=== PATIENT | female | born 1990 | race Caucasian/White ===

== ENCOUNTER 2018-11-02 01:50 | Inpatient (IN) | payer BC ==
[2018-11-02] MEDS ORDERED: Ondansetron 4 MG/2 ML SDV IVPUSH PRN (16:38)
[2018-11-02] MEDS ORDERED: ceFAZolin 2 GM in Premix Bag 1 BAG IV ONE (16:38)
[2018-11-02] MEDS ORDERED: Nalbuphine 20 MG/ML 1 ML Syringe IVPUSH PRN (16:38)
[2018-11-02] MEDS ORDERED: Sodium Chloride 0.9% 10 ML Syringe FLUSH PRN (16:38)
[2018-11-02] MEDS ORDERED: Oxytocin/Lactated Ringers 10 UNIT/1,000 ML BAG IV SCH ×2 (16:45)
--- NOTE | 2018-11-02 16:50 | PCM.LDHP ---
L&D History of Present Illness - General Date of Service: 11/02/18 Admit Problem/Dx: Patient Status Order with Admit Dx/Problem 11/02/18 16:38 Patient Status [ADT] Routine Admission Diagnosis/Problem Admission Diagnosis/Problem Source of Information: Patient History Limitations: Reports: No Limitations - History of Present Illness Introduction:: Patient is a 28 y/o at 39 1/7 wks who presents for IOL after findings of elevated BP at time of clinic appointment. Doing well. No headaches, vision changes, or RUQ pain. 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 : 3 Para: 1 LMP (Approximate): - Past Surgical History HEENT Surgical History: Reports: Oral Surgery GI Surgical History: Reports: Colonoscopy, EGD Social & Family History - Tobacco Use Smoking Status *Q: Never Smoker - Alcohol Use Alcohol Use History: No - Recreational Drug Use Recreational Drug Use: No H&P Review of Systems - Review of Systems: Review Of Systems: See Below General: Reports: No Symptoms Pulmonary: Reports: No Symptoms Cardiovascular: Reports: No Symptoms Gastrointestinal: Reports: No Symptoms Genitourinary: Reports: No Symptoms Musculoskeletal: Reports: No Symptoms Psychiatric: Reports: No Symptoms Neurological: Reports: No Symptoms L&D Exam - Exam Exam: See Below - Vital Signs Weight: 112.491 kg - OB Specific Contraction Intensity: Irritability Movement: Active Heart Tones: Present Heart Tones per Min: 135 Heart Rate (FHR) Variability: Moderate (6-25 bmp) Presentation: Vertex - Fuentes Score Fuentes Score Cervix Position: Midposition Fuentes Score Consistency: Soft Fuentes Score Effacement: 31-50% Fuentes Score Dilation: 1-2 cm Fuentes Score Infant's Station: -2 Fuentes Score Total: 6 - Exam General: Alert, Oriented, Cooperative Lungs: Clear to Auscultation, Normal Respiratory Effort Cardiovascular: Regular Rate, Regular Rhythm GI/Abdominal Exam: Soft, Non-Tender Genitourinary: Normal external exam Extremities: Normal Inspection Skin: Warm, Dry, Intact - Patient Data Result Diagrams: 11/02/18 16:50 11/02/18 16:50 - Problem List (1) 39 weeks gestation of SNOMED Code(s): 39249053 ICD Code: Z3A.39 - 39 WEEKS GESTATION OF Status: Acute Current Visit: Yes (2) Gestational hypertension SNOMED Code(s): 626447830 ICD Code: O13.9 - GESTATIONAL HTN W/O SIGNIFICANT PROTEINURIA, UNSP TRIMESTER Status: Acute Current Visit: Yes Qualifiers: Trimester: third trimester Qualified Code(s): O13.3 - Gestational [ -induced] hypertension without significant proteinuria, third trimester (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 SNOMED Code(s): 0937980519627 ICD Code: Z22.330 - CARRIER OF GROUP B STREPTOCOCCUS Status: Acute Current Visit: Yes Problem List Initiated/Reviewed/Updated: Yes Orders Last 24hrs: Active Orders 24 hr Category Date Time Status Patient Status [ADT] Routine ADT 11/02/18 16:38 Active Activity as Tolerated [RC] PFP Care 11/02/18 16:38 Active Communication Order [RC] ASDIRECTED Care 11/02/18 16:38 Active Heart Tones [RC] ASDIRECTED Care 11/02/18 16:38 Active Non Stress Test [RC] PER UNIT ROUTINE Care 11/02/18 16:38 Active Notify Provider [RC] PFP Care 11/02/18 16:38 Active Notify Provider [RC] PRN Care 11/02/18 16:38 Active Peripheral IV Care [RC] . DIRECTED Care 11/02/18 16:38 Active Vital Signs [RC] PER UNIT ROUTINE Care 11/02/18 16:38 Active Regular Diet [DIET] Diet 11/02/18 Dinner Active CBC WITH AUTO DIFF [HEME] Stat Lab 11/02/18 16:38 Ordered RAPID PLASMA REAGIN,RPR [CHEM] Routine Lab 11/02/18 16:38 Ordered TYPE AND SCREEN [BBK] Stat Lab 11/02/18 16:38 Ordered Lactated Ringers [Ringers, Lactated] 1,000 ml Med 11/02/18 16:45 Active IV ASDIRECTED Nalbuphine [Nubain] Med 11/02/18 16:38 Active 10 mg IVPUSH Q2H PRN Ondansetron [Zofran] Med 11/02/18 16:38 Active 4 mg IVPUSH Q4H PRN Oxytocin/Lactated Ringers [Pitocin in LR 10 Units/1,000 Med 11/02/18 16:45 Active ML] 10 unit in 1,000 ml IV ASDIRECTED Oxytocin/Lactated Ringers [Pitocin in LR 10 Units/1,000 Med 11/02/18 16:45 Active ML] 10 unit in 1,000 ml IV TITRATE Sodium Chloride 0.9% [Saline Flush] Med 11/02/18 16:38 Active 10 ml FLUSH ASDIRECTED PRN ceFAZolin [Ancef] 1 gm Med 11/02/18 22:00 Pending Premix Bag 1 bag IV Q8HR ceFAZolin [Ancef] 2 gm Med 11/02/18 16:38 Active Premix Bag 1 bag IV ONETIME Electronic Heart Tones Ext w TOCO [WOMSER] Oth 11/02/18 16:38 Ordered Routine Electronic Heart Tones Internal [WOMSER] Per Unit Oth 11/02/18 16:38 Ordered Routine Peripheral IV Insertion Adult [OM.PC] Routine Oth 11/02/18 16:38 Ordered Resuscitation Status Routine Resus Stat 11/02/18 16:38 Ordered Medication Orders Cefazolin Sodium/Dextrose 2 gm (/ Premix) 50 mls @ 100 mls/hr IV ONETIME ONE Stop: 11/02/18 17:07 Cefazolin Sodium/Dextrose 1 gm (/ Premix) 50 mls @ 100 mls/hr IV Q8HR MICAELA Lactated Ringer's (Ringers, Lactated) 1,000 mls @ 100 mls/hr IV ASDIRECTED MICAELA Oxytocin/Lactated Ringer's (Pitocin In Lr 10 Units/1,000 Ml) 10 unit in 1,000 mls @ 12 mls/hr IV TITRATE MICAELA; Protocol Oxytocin/Lactated Ringer's (Pitocin In Lr 10 Units/1,000 Ml) 10 unit in 1,000 mls @ 500 mls/hr IV ASDIRECTED MICAELA Nalbuphine HCl (Nubain) 10 mg IVPUSH Q2H PRN PRN Reason: pain Ondansetron HCl (Zofran) 4 mg IVPUSH Q4H PRN PRN Reason: Nausea/Vomiting Sodium Chloride (Saline Flush) 10 ml FLUSH ASDIRECTED PRN PRN Reason: Keep Vein Open Assessment/Plan Comment:: 28 y/o at 39 1/7 wks who presents for IOL for gestational HTN * Labs on admission * GBS positive, will plan for Ancef (Amoxicillin allergy as a child) * Pitocin for IOL with AROM when able * Pain management per patient preference * Anticipate
[2018-11-02] MEDS: Lactated Ringers 1,000 ML IV SCH ×3 (17:07→22:46)
--- NOTE | 2018-11-02 20:46 | PCM.PNLD ---
Labor Progress Note - VS & Meds Vital Signs: Last Vital Signs Temp 37.1 C 11/02/18 16:38 Pulse 83 11/02/18 16:38 Resp 16 11/02/18 16:38 BP 139/91 H 11/02/18 16:38 Pulse Ox 98 11/02/18 16:38 Active Medications: Current Medications Cefazolin Sodium/Dextrose 1 gm (/ Premix) 50 mls @ 100 mls/hr IV Q8H MICAELA Lactated Ringer's (Ringers, Lactated) 1,000 mls @ 100 mls/hr IV ASDIRECTED MICAELA Last Admin: 11/02/18 17:07 Dose: 100 mls/hr Oxytocin/Lactated Ringer's (Pitocin In Lr 10 Units/1,000 Ml) 10 unit in 1,000 mls @ 12 mls/hr IV TITRATE MICAELA; Protocol Last Titration: 11/02/18 18:51 Dose: 6 munits/min, 36 mls/hr Oxytocin/Lactated Ringer's (Pitocin In Lr 10 Units/1,000 Ml) 10 unit in 1,000 mls @ 500 mls/hr IV ASDIRECTED MICAELA Nalbuphine HCl (Nubain) 10 mg IVPUSH Q2H PRN PRN Reason: pain Ondansetron HCl (Zofran) 4 mg IVPUSH Q4H PRN PRN Reason: Nausea/Vomiting Sodium Chloride (Saline Flush) 10 ml FLUSH ASDIRECTED PRN PRN Reason: Keep Vein Open Discontinued Medications Cefazolin Sodium/Dextrose 2 gm (/ Premix) 50 mls @ 100 mls/hr IV ONETIME ONE Stop: 11/02/18 17:07 Last Admin: 11/02/18 17:07 Dose: 100 mls/hr - Uterine Contractions Uterine Monitoring Mode: External [place] Contraction Intensity: Mild Uterine Resting Tone: Soft - Monitoring Monitor Mode: External Ultrasound Heart Rate (FHR) Baseline: 135 Heart Rate (FHR) Variability: Moderate (6-25 bmp) Accelerations: Present, 15x15 Decelerations: None Strip Review: Category I - Vaginal Exam Dilation (cm): 3 Effacement (Percent): 70 Station: -2 Cervical Position: Midposition - Labor Progress (Free Text) Labor Progress: Doing well on 12 of pitocin. AROM performed. Clear fluid released. Continue present management
[2018-11-02] MEDS ORDERED: ePHEDrine 50 MG/ML SDV IVPUSH PRN (21:08)
[2018-11-02] MEDS ORDERED: diphenhydrAMINE 50 MG/ML SDV IVPUSH PRN (21:08)
[2018-11-02] MEDS ORDERED: fentaNYL 100 MCG/2 ML SDV EPIDUR PRN (21:08)
--- NOTE | 2018-11-02 22:04 | PCM.PREANE ---
Preanesthetic Assessment - Anesthesia/Transfusion/Family Hx Anesthesia History: Prior Anesthesia Without Reaction Family History of Anesthesia Reaction: No Transfusion History: No Prior Transfusion(s) Intubation History: Unknown - Review of Systems General: No Symptoms Pulmonary: No Symptoms Cardiovascular: No Symptoms Gastrointestinal: No Symptoms Neurological: No Symptoms Other: Reports: None - Physical Assessment NPO Status Date: 11/02/18 NPO Status Time: 02:00 O2 Sat by Pulse Oximetry: 98 Respiratory Rate: 16 Vital Signs: Last Vital Signs Temp 37.1 C 11/02/18 16:38 Pulse 83 11/02/18 16:38 Resp 16 11/02/18 16:38 BP 139/91 H 11/02/18 16:38 Pulse Ox 98 11/02/18 16:38 Height: 1.75 m Weight: 112.491 kg ASA Class: 2 Mental Status: Alert & Oriented x3 Airway Class: Mallampati = 2 Dentition: Reports: Normal Dentition ROM/Head Extension: Full Lungs: Clear to Auscultation, Normal Respiratory Effort Cardiovascular: Regular Rate, Regular Rhythm, No Murmurs - Lab Values: Laboratory Last Values WBC 9.16 K/mm3 (3.98-10.04) 11/02/18 16:50 RBC 4.19 M/mm3 (3.98-5.22) 11/02/18 16:50 Hgb 11.0 gm/L (11.2-15.7) L 11/02/18 16:50 Hct 34.4 % (34.1-44.9) 11/02/18 16:50 MCV 82.1 fl (79.4-94.8) 11/02/18 16:50 MCH 26.3 pg (25.6-32.2) 11/02/18 16:50 MCHC 32.0 g/dl (32.2-35.5) L 11/02/18 16:50 RDW Std Deviation 42.2 fL (36.4-46.3) 11/02/18 16:50 Plt Count 268 K/mm3 (182-369) 11/02/18 16:50 MPV 11.0 fl (9.4-12.3) 11/02/18 16:50 Neut % (Auto) 65.5 % (34.0-71.1) 11/02/18 16:50 Lymph % (Auto) 25.9 % (19.3-51.7) 11/02/18 16:50 [place] % (Auto) 7.4 % (4.7-12.5) 11/02/18 16:50 Eos % (Auto) 0.7 (0.7-5.8) 11/02/18 16:50 Baso % (Auto) 0.2 % (0.1-1.2) 11/02/18 16:50 Neut # (Auto) 6.00 K/mm3 (1.56-6.13) 11/02/18 16:50 Lymph # (Auto) 2.37 K/mm3 (1.18-3.74) 11/02/18 16:50 [place] # (Auto) 0.68 K/mm3 (0.24-0.36) H 11/02/18 16:50 Eos # (Auto) 0.06 K/mm3 (0.04-0.36) 11/02/18 16:50 Baso # (Auto) 0.02 K/mm3 (0.01-0.08) 11/02/18 16:50 Creatinine 0.7 mg/dL (0.55-1.02) 11/02/18 16:50 Est Cr Clr Drug Dosing 122.81 mL/min 11/02/18 16:50 Estimated GFR (MDRD) > 60 mL/min (>60) 11/02/18 16:50 AST 24 U/L (15-37) 11/02/18 16:50 ALT 27 U/L (14-59) 11/02/18 16:50 Ur Random Creatinine 120.0 mg/dL (30.0-125.0) 11/02/18 18:40 U Random Total Protein 23.0 mg/dL (0.0-11.8) H 11/02/18 18:40 Protein/Creatinin Ratio 191.7 mg/g (0-149) H 11/02/18 18:40 Blood Type AB POSITIVE 11/02/18 16:50 Gel Antibody Screen Negative 11/02/18 16:50 - Allergies Allergies/Adverse Reactions: Allergies Allergy/AdvReac Type Severity Reaction Status Date / Time gluten Allergy Mild Other Verified 11/02/18 16:15 amoxicillin Allergy Other Verified 11/02/18 16:15 - Blood Blood Available: Yes - Anesthesia Plan Pre-Op Medication Ordered: None - Acknowledgements Anesthesia Type Planned: Epidural Pt an Appropriate Candidate for the Planned Anesthesia: Yes Alternatives and Risks of Anesthesia Discussed w Pt/Guardian: Yes Pt/Guardian Understands and Agrees with Anesthesia Plan: Yes PreAnesthesia Questionnaire Gastrointestinal History: Reports: 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: , 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 Endocrine/Metabolic History: Reports: Obesity/BMI 30+ - Past Surgical History HEENT Surgical History: Reports: Oral Surgery GI Surgical History: Reports: Colonoscopy, EGD - SUBSTANCE USE Smoking Status *Q: Never Smoker Second Hand Smoke Exposure: No Recreational Drug Use History: No - HOME MEDS Home Medications: Home Meds Ferrous Sulfate [Iron] 325 mg PO DAILY 11/02/18 [History] PNV95/Ferrous Fumarate/FA [ Tablet] 1 tab PO DAILY 11/02/18 [History] - CURRENT (IN HOUSE) MEDS Current Meds: Current Medications Diphenhydramine HCl (Benadryl) 25 mg IVPUSH Q6H PRN PRN Reason: Pruritis Ephedrine Sulfate (Ephedrine Sulfate) 5 mg IVPUSH ONETIME PRN PRN Reason: Hypotension Fentanyl (Sublimaze) 100 mcg EPIDUR Q3H PRN PRN Reason: Pain Cefazolin Sodium/Dextrose 1 gm (/ Premix) 50 mls @ 100 mls/hr IV Q8H MICAELA Lactated Ringer's (Ringers, Lactated) 1,000 mls @ 100 mls/hr IV ASDIRECTED [facility] Last Admin: 11/02/18 21:02 Dose: 100 mls/hr Oxytocin/Lactated Ringer's (Pitocin In Lr 10 Units/1,000 Ml) 10 unit in 1,000 mls @ 12 mls/hr IV TITRATE MICAELA; Protocol Last Titration: 11/02/18 19:45 Dose: 10 munits/min, 60 mls/hr Oxytocin/Lactated Ringer's (Pitocin In Lr 10 Units/1,000 Ml) 10 unit in 1,000 mls @ 500 mls/hr IV ASDIRECTED [facility] Nalbuphine HCl (Nubain) 10 mg IVPUSH Q2H PRN PRN Reason: pain Ondansetron HCl (Zofran) 4 mg IVPUSH Q4H PRN PRN Reason: Nausea/Vomiting Sodium Chloride (Saline Flush) 10 ml FLUSH ASDIRECTED PRN PRN Reason: Keep Vein Open Discontinued Medications Cefazolin Sodium/Dextrose 2 gm (/ Premix) 50 mls @ 100 mls/hr IV ONETIME ONE Stop: 11/02/18 17:07 Last Admin: 11/02/18 17:07 Dose: 100 mls/hr
--- NOTE | 2018-11-02 22:05 | PCM.POSTAN ---
POST ANESTHESIA ASSESSMENT - MENTAL STATUS Mental Status: Alert - RESPIRATORY Respiratory Status: Respiratory Rate WNL, Airway Patent - CARDIOVASCULAR CV Status: Pulse Rate WNL, Blood Pressure Stable - GASTROINTESTINAL GI Status: No Symptoms - POST OP HYDRATION Hydration Status: Adequate & Stable
[2018-11-03] MEDS ORDERED: ceFAZolin 1 GM in Premix Bag 1 BAG IV SCH ×2
--- NOTE | 2018-11-03 02:22 | PCM.DEL ---
L & D Note - Delivery Note Labor: Induced by ARM, Induced by Oxytocin Delivery Outcome: Livebirth Delivery Method: Spontaneous Vaginal Delivery-Single Delivery Mode: Spontaneous Presentation: Right Occiput Anterior (PRITI) Nuchal Cord: Present (Not reduced as tight, delivered through) Anesthesia Type: Epidural Amniotic Fluid Description: Clear Episiotomy Type: None Laceration: 2nd Degree, Perineal Suture type: Vicryl Suture size: 2-0 Placenta: Intact, Spontaneous Cord: 3 Vessels Estimated Blood Loss: 200 : Bulb Syringe, Stimulated, Warmed, [place] Used, Warmer Used Delivery Comments (Free Text/Narrative):: Patient found to be complete and began pushing. With maternal pushing effort head delivered from an PRITI presentation. Nuchal cord present, but tight and not able to be reduced. With gentle downward tractions the shoulders and body delivered. Infant placed on maternal abdomen. Cord clamped and cut. Cord blood obtained. Placenta allowed time to separate and expelled intact. Inspection of the perineum showed a 2nd degree laceration. On perineal body was also a vigorous bleeding vessel. This was controlled with an interrupted suture of 2-0 vicryl placed in figure of eight fashion. Remainder of laceration closed with a 2-0 in a typical fashion. - General Info Date of Service: 11/03/18 - Patient Data Vitals - Most Recent: Last Vital Signs Temp 37.1 C 11/02/18 16:38 Pulse 83 11/02/18 16:38 Resp 16 11/02/18 22:04 BP 139/91 H 11/02/18 16:38 Pulse Ox 98 11/02/18 22:04 Weight - Most Recent: 112.491 kg I&O - Last 24 Hours: Intake & Output 11/02/18 11/02/18 11/03/18 14:59 22:59 06:59 Intake Total 1999 Balance 1999 Lab Results Last 24 Hours: Laboratory Results - last 24 hr 11/02/18 11/02/18 11/02/18 Range/Units 16:50 16:50 16:50 WBC 9.16 (3.98-10.04) K/mm3 RBC 4.19 (3.98-5.22) M/mm3 Hgb 11.0 L (11.2-15.7) gm/L Hct 34.4 (34.1-44.9) % MCV 82.1 (79.4-94.8) fl MCH 26.3 (25.6-32.2) pg MCHC 32.0 L (32.2-35.5) g/dl RDW Std Deviation 42.2 (36.4-46.3) fL Plt Count 268 (182-369) K/mm3 MPV 11.0 (9.4-12.3) fl Neut % (Auto) 65.5 (34.0-71.1) % Lymph % (Auto) 25.9 (19.3-51.7) % [place] % (Auto) 7.4 (4.7-12.5) % Eos % (Auto) 0.7 (0.7-5.8) Baso % (Auto) 0.2 (0.1-1.2) % Neut # (Auto) 6.00 (1.56-6.13) K/mm3 Lymph # (Auto) 2.37 (1.18-3.74) K/mm3 [place] # (Auto) 0.68 H (0.24-0.36) K/mm3 Eos # (Auto) 0.06 (0.04-0.36) K/mm3 Baso # (Auto) 0.02 (0.01-0.08) K/mm3 Creatinine 0.7 (0.55-1.02) mg/dL Est Cr Clr Drug Dosing 122.81 mL/min Estimated GFR (MDRD) > 60 (>60) mL/min AST 24 (15-37) U/L ALT 27 (14-59) U/L Ur Random Creatinine (30.0-125.0) mg/dL U Random Total Protein (0.0-11.8) mg/dL Protein/Creatinin Ratio (0-149) mg/g Blood Type AB POSITIVE Gel Antibody Screen Negative 11/02/18 Range/Units 18:40 WBC (3.98-10.04) K/mm3 RBC (3.98-5.22) M/mm3 Hgb (11.2-15.7) gm/L Hct (34.1-44.9) % MCV (79.4-94.8) fl MCH (25.6-32.2) pg MCHC (32.2-35.5) g/dl RDW Std Deviation (36.4-46.3) fL Plt Count (182-369) K/mm3 MPV (9.4-12.3) fl Neut % (Auto) (34.0-71.1) % Lymph % (Auto) (19.3-51.7) % [place] % (Auto) (4.7-12.5) % Eos % (Auto) (0.7-5.8) Baso % (Auto) (0.1-1.2) % Neut # (Auto) (1.56-6.13) K/mm3 Lymph # (Auto) (1.18-3.74) K/mm3 [place] # (Auto) (0.24-0.36) K/mm3 Eos # (Auto) (0.04-0.36) K/mm3 Baso # (Auto) (0.01-0.08) K/mm3 Creatinine (0.55-1.02) mg/dL Est Cr Clr Drug Dosing mL/min Estimated GFR (MDRD) (>60) mL/min AST (15-37) U/L ALT (14-59) U/L Ur Random Creatinine 120.0 (30.0-125.0) mg/dL U Random Total Protein 23.0 H (0.0-11.8) mg/dL Protein/Creatinin Ratio 191.7 H (0-149) mg/g Blood Type Gel Antibody Screen Med Orders - Current: Current Medications Diphenhydramine HCl (Benadryl) 25 mg IVPUSH Q6H PRN PRN Reason: Pruritis Ephedrine Sulfate (Ephedrine Sulfate) 5 mg IVPUSH ONETIME PRN PRN Reason: Hypotension Fentanyl (Sublimaze) 100 mcg EPIDUR Q3H PRN PRN Reason: Pain Cefazolin Sodium/Dextrose 1 gm (/ Premix) 50 mls @ 100 mls/hr IV Q8H [facility] Last Admin: 11/03/18 01:06 Dose: 100 mls/hr Lactated Ringer's (Ringers, Lactated) 1,000 mls @ 100 mls/hr IV ASDIRECTED [facility] Last Admin: 11/02/18 22:46 Dose: 100 mls/hr Oxytocin/Lactated Ringer's (Pitocin In Lr 10 Units/1,000 Ml) 10 unit in 1,000 mls @ 12 mls/hr IV TITRATE MICAELA; Protocol Last Titration: 11/02/18 23:20 Dose: 16 munits/min, 96 mls/hr Oxytocin/Lactated Ringer's (Pitocin In Lr 10 Units/1,000 Ml) 10 unit in 1,000 mls @ 500 mls/hr IV ASDIRECTED MICAELA Nalbuphine HCl (Nubain) 10 mg IVPUSH Q2H PRN PRN Reason: pain Ondansetron HCl (Zofran) 4 mg IVPUSH Q4H PRN PRN Reason: Nausea/Vomiting Sodium Chloride (Saline Flush) 10 ml FLUSH ASDIRECTED PRN PRN Reason: Keep Vein Open Discontinued Medications Cefazolin Sodium/Dextrose 2 gm (/ Premix) 50 mls @ 100 mls/hr IV ONETIME ONE Stop: 11/02/18 17:07 Last Admin: 11/02/18 17:07 Dose: 100 mls/hr - Problem List & Annotations (1) 39 weeks gestation of SNOMED Code(s): 18166155 Code(s): Z3A.39 - 39 WEEKS GESTATION OF Status: Acute Current Visit: Yes (2) Gestational hypertension SNOMED Code(s): 131220504 Code(s): O13.9 - GESTATIONAL HTN W/O SIGNIFICANT PROTEINURIA, UNSP TRIMESTER Status: Acute Current Visit: Yes Qualifiers: Trimester: third trimester Qualified Code(s): O13.3 - Gestational [ -induced] hypertension without significant proteinuria, third trimester (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 DIRECTED Vital Signs [RC] PER UNIT ROUTINE Nalbuphine [Nubain] 10 mg IVPUSH Q2H PRN Ondansetron [Zofran] 4 mg IVPUSH Q4H PRN Sodium Chloride 0.9% [Saline Flush] 10 ml FLUSH ASDIRECTED PRN Electronic Heart Tones Ext w TOCO [WOMSER] Routine Electronic Heart Tones Internal [WOMSER] Per Unit Routine Peripheral IV Insertion Adult [OM.PC] Routine Resuscitation Status Routine 11/02/18 16:45 Lactated Ringers [Ringers, Lactated] 1,000 ml IV ASDIRECTED Oxytocin/Lactated Ringers [Pitocin in LR 10 Units/1,000 ML] 10 unit in 1,000 ml IV ASDIRECTED Oxytocin/Lactated Ringers [Pitocin in LR 10 Units/1,000 ML] 10 unit in 1,000 ml IV TITRATE 11/02/18 16:50 RAPID PLASMA REAGIN,RPR [CHEM] Routine 11/02/18 Dinner Regular Diet [DIET] 11/03/18 00:00 ceFAZolin [Ancef] 1 gm Premix Bag 1 bag IV Q8H 11/03/18 02:18 Patient Status Manage Transfer [TRANSFER] Routine - Assessment Assessment:: 28 y/o G3 now P2012 PPD#0 form at 39 2/7 wks - Plan Plan:: * Routine cares * Encourage breast feeding * Monitor BP's closely * Discharge home in 1-2 days
[2018-11-03] MEDS ORDERED: Witch Hazel Medicated Pads 40/Jar TOP PRN (03:00)
[2018-11-03] MEDS ORDERED: Bupivacaine 0.25% 10 ML SDV ONE (03:00)
[2018-11-03] MEDS ORDERED: Benzocaine/Menthol 20%-0.5% Spray 56 GM Canister TOP PRN (03:00)
[2018-11-03] MEDS ORDERED: Acetaminophen 325 MG Tab PO PRN (03:00)
[2018-11-03] MEDS ORDERED: Lanolin 100% Cream 7 GM Tube TOP PRN (03:00)
[2018-11-03] MEDS: Docusate Sodium 100 MG Cap PO PRN ×2 (03:56→20:15)
[2018-11-03] MEDS: Ibuprofen 600 MG Tab PO PRN ×2 (03:56→20:16)
--- NOTE | 2018-11-03 07:14 | PCM48HPAN ---
Post Anesthesia Note - EVALUATION WITHIN 48HRS OF ANESTHETIC Vital Signs in Normal Range: Yes Patient Participated in Evaluation: Yes Respiratory Function Stable: Yes Airway Patent: Yes Cardiovascular Function Stable: Yes Hydration Status Stable: Yes Pain Control Satisfactory: Yes Nausea and Vomiting Control Satisfactory: Yes Mental Status Recovered: Yes Resp Rate: 16
[2018-11-03] MEDS ORDERED: Bupivacaine/fentaNYL/NS 100 ML Bag EPIDUR SCH (07:30)
[2018-11-04] MEDS: Ibuprofen 600 MG Tab PO PRN (03:31)
--- NOTE | 2018-11-04 07:04 | PCM.PNPP ---
- General Info Date of Service: 11/04/18 Functional Status: Reports: Pain Controlled, Tolerating Diet, Ambulating, Urinating - Review of Systems General: Reports: No Symptoms Pulmonary: Reports: No Symptoms Cardiovascular: Reports: No Symptoms Gastrointestinal: Reports: No Symptoms Genitourinary: Reports: No Symptoms Musculoskeletal: Reports: No Symptoms Neurological: Reports: No Symptoms - Patient Data Vital Signs - Most Recent: Last Vital Signs Temp 36.6 C 11/04/18 03:47 Pulse 69 11/04/18 03:47 Resp 16 11/04/18 03:47 BP 123/78 11/04/18 03:47 Pulse Ox 99 11/04/18 03:47 Weight - Most Recent: 112.491 kg Lab Results - Last 24 Hours: Laboratory Results - last 24 hr 11/02/18 Range/Units 16:50 RPR Non-reactive (NONREACTIVE) Med Orders - Current: Current Medications Acetaminophen (Tylenol) 650 mg PO Q4H PRN PRN Reason: mild pain or fever Benzocaine/Menthol (Dermoplast Pain Relief [place]) 0 gm TOP ASDIRECTED PRN PRN Reason: Perineal Comfort Measure Last Admin: 11/03/18 03:53 Dose: 1 canister Docusate Sodium (Colace) 100 mg PO BID PRN PRN Reason: Constipation Last Admin: 11/03/18 20:15 Dose: 100 mg Emollient Ointment (Lansinoh Hpa) 0 gm TOP ASDIRECTED PRN PRN Reason: Sore Nipples Last Admin: 11/03/18 04:00 Dose: 1 tub Ibuprofen (Motrin) 600 mg PO Q6H PRN PRN Reason: Mild pain or fever Last Admin: 11/04/18 03:31 Dose: 600 mg Witch Karli (Tucks) 1 pad TOP ASDIRECTED PRN PRN Reason: Perineal Comfort Measure Last Admin: 11/03/18 03:53 Dose: 1 tub Discontinued Medications Bupivacaine HCl (Sensorcaine-Mpf 0.25%) 10 ml .ROUTE .STK-MED ONE Stop: 11/03/18 03:01 Diphenhydramine HCl (Benadryl) 25 mg IVPUSH Q6H PRN PRN Reason: Pruritis Ephedrine Sulfate (Ephedrine Sulfate) 5 mg IVPUSH ONETIME PRN PRN Reason: Hypotension Fentanyl (Sublimaze) 100 mcg EPIDUR Q3H PRN PRN Reason: Pain Fentanyl/Bupivacaine HCl (Fentanyl/Bupivacaine/Ns 2 Mcg-0.125% 100 Ml) 100 ml EPIDUR ASDIRECTED [facility] Last Admin: 11/02/18 21:30 Dose: 100 ml Cefazolin Sodium/Dextrose 2 gm (/ Premix) 50 mls @ 100 mls/hr IV ONETIME ONE Stop: 11/02/18 17:07 Last Admin: 11/02/18 17:07 Dose: 100 mls/hr Cefazolin Sodium/Dextrose 1 gm (/ Premix) 50 mls @ 100 mls/hr IV Q8H [facility] Last Admin: 11/03/18 01:06 Dose: 100 mls/hr Lactated Ringer's (Ringers, Lactated) 1,000 mls @ 100 mls/hr IV ASDIRECTED [facility] Last Admin: 11/02/18 22:46 Dose: 100 mls/hr Oxytocin/Lactated Ringer's (Pitocin In Lr 10 Units/1,000 Ml) 10 unit in 1,000 mls @ 12 mls/hr IV TITRATE [facility]; Protocol Last Titration: 11/02/18 23:20 Dose: 16 munits/min, 96 mls/hr Oxytocin/Lactated Ringer's (Pitocin In Lr 10 Units/1,000 Ml) 10 unit in 1,000 mls @ 500 mls/hr IV ASDIRECTED [facility] Nalbuphine HCl (Nubain) 10 mg IVPUSH Q2H PRN PRN Reason: pain Ondansetron HCl (Zofran) 4 mg IVPUSH Q4H PRN PRN Reason: Nausea/Vomiting Sodium Chloride (Saline Flush) 10 ml FLUSH ASDIRECTED PRN PRN Reason: Keep Vein Open - Infant Interaction Disposition, : in Room with Family Interaction: Holding Infant Infant Feeding: Attempted ; Nursed Fair/Poor Support Person: - Recovery Exam Fundal Tone: Firm Fundal Level: 1 Fingerbreadths Below Umbilicus Fundal Placement: Midline Lochia Amount: Small Lochia Color: Rubra/Red Perineum Description: Other (see below) Other Perinuem Description: 2 nd degree with repair Episiotomy/Laceration: Approximated Bladder Status: Voiding Urinary Elimination: Voided - Exam General: Alert, Oriented, Cooperative GI/Abdominal Exam: Soft, Non-Tender Extremities: Normal Inspection Skin: Warm, Dry, Intact - Problem List & Annotations (1) 39 weeks gestation of SNOMED Code(s): 19713748 Code(s): Z3A.39 - 39 WEEKS GESTATION OF Status: Acute Current Visit: Yes (2) Gestational hypertension SNOMED Code(s): 891672609 Code(s): O13.9 - GESTATIONAL HTN W/O SIGNIFICANT PROTEINURIA, UNSP TRIMESTER Status: Acute Current Visit: Yes Qualifiers: Trimester: third trimester Qualified Code(s): O13.3 - Gestational [ -induced] hypertension without significant proteinuria, third trimester (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 SNOMED Code(s): 1783464959951 Code(s): Z22.330 - CARRIER OF GROUP B STREPTOCOCCUS Status: Acute Current Visit: Yes (4) Vaginal delivery SNOMED Code(s): 992969724 Code(s): O80 - ENCOUNTER FOR FULL-TERM UNCOMPLICATED DELIVERY Status: Acute Current Visit: Yes - Problem List Review Problem List Initiated/Reviewed/Updated: Yes - My Orders Last 24 Hours: My Active Orders 11/03/18 Breakfast Regular Diet [DIET] 11/04/18 03:00 Heat Therapy [OM.PC] PRN - Assessment Assessment:: 28 y/o G3 now P2012 PPD#1 form at 39 2/7 wks - Plan Plan:: * Routine cares * Encourage breast feeding * BP's normal to mild range. BP check in 1-2 weeks * Discharge home today
--- NOTE | 2018-11-04 07:06 | PCM.DCSUM1 ---
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 IOL done with pitocin and AROM. She progressed well to complete dilation and underwent an uncomplicated . See delivery note. she did well and was discharged home on PPD#1 - Patient Instructions Diet: Regular Diet as Tolerated Activity: As Tolerated Activity, Other: Pelvic rest for 6 weeks Driving: May Drive Today Showering/Bathing: May Shower Showering/Bathing, Other: May Bathe Notify Provider of: Fever, Increased Pain, Swelling and Redness, Drainage, Nausea and/or Vomiting - Discharge Plan *PRESCRIPTION DRUG MONITORING PROGRAM REVIEWED*: Not Applicable *COPY OF PRESCRIPTION DRUG MONITORING REPORT IN PATIENT OLAYINKA: Not Applicable Home Medications: Home Meds PNV95/Ferrous Fumarate/FA [ Tablet] 1 tab PO DAILY 11/02/18 [History] Docusate Sodium [Colace] 100 mg PO BID PRN cap 11/03/18 [Rx] Ibuprofen [Motrin] 600 mg PO Q6H PRN tablet 11/03/18 [Rx] Referrals: Alina Wesley MD [Primary Care Provider] - (2 weeks for BP check ) - Discharge Summary/Plan Comment DC Time >30 min.: No - Patient Data Vitals - Most Recent: Last Vital Signs Temp 36.6 C 11/04/18 03:47 Pulse 69 11/04/18 03:47 Resp 16 11/04/18 03:47 BP 123/78 11/04/18 03:47 Pulse Ox 99 11/04/18 03:47 Weight - Most Recent: 112.491 kg Lab Results - Last 24 hrs: Laboratory Results - last 24 hr 11/02/18 Range/Units 16:50 RPR Non-reactive (NONREACTIVE) Med Orders - Current: Current Medications Acetaminophen (Tylenol) 650 mg PO Q4H PRN PRN Reason: mild pain or fever Benzocaine/Menthol (Dermoplast Pain Relief [place]) 0 gm TOP ASDIRECTED PRN PRN Reason: Perineal Comfort Measure Last Admin: 11/03/18 03:53 Dose: 1 canister Docusate Sodium (Colace) 100 mg PO BID PRN PRN Reason: Constipation Last Admin: 11/03/18 20:15 Dose: 100 mg Emollient Ointment (Lansinoh Hpa) 0 gm TOP ASDIRECTED PRN PRN Reason: Sore Nipples Last Admin: 11/03/18 04:00 Dose: 1 tub Ibuprofen (Motrin) 600 mg PO Q6H PRN PRN Reason: Mild pain or fever Last Admin: 11/04/18 03:31 Dose: 600 mg Witch Karli (Tucks) 1 pad TOP ASDIRECTED PRN PRN Reason: Perineal Comfort Measure Last Admin: 11/03/18 03:53 Dose: 1 tub Discontinued Medications Bupivacaine HCl (Sensorcaine-Mpf 0.25%) 10 ml .ROUTE .STK-MED ONE Stop: 11/03/18 03:01 Diphenhydramine HCl (Benadryl) 25 mg IVPUSH Q6H PRN PRN Reason: Pruritis Ephedrine Sulfate (Ephedrine Sulfate) 5 mg IVPUSH ONETIME PRN PRN Reason: Hypotension Fentanyl (Sublimaze) 100 mcg EPIDUR Q3H PRN PRN Reason: Pain Fentanyl/Bupivacaine HCl (Fentanyl/Bupivacaine/Ns 2 Mcg-0.125% 100 Ml) 100 ml EPIDUR ASDIRECTED [facility] Last Admin: 11/02/18 21:30 Dose: 100 ml Cefazolin Sodium/Dextrose 2 gm (/ Premix) 50 mls @ 100 mls/hr IV ONETIME ONE Stop: 11/02/18 17:07 Last Admin: 11/02/18 17:07 Dose: 100 mls/hr Cefazolin Sodium/Dextrose 1 gm (/ Premix) 50 mls @ 100 mls/hr IV Q8H [facility] Last Admin: 11/03/18 01:06 Dose: 100 mls/hr Lactated Ringer's (Ringers, Lactated) 1,000 mls @ 100 mls/hr IV ASDIRECTED [facility] Last Admin: 11/02/18 22:46 Dose: 100 mls/hr Oxytocin/Lactated Ringer's (Pitocin In Lr 10 Units/1,000 Ml) 10 unit in 1,000 mls @ 12 mls/hr IV TITRATE [facility]; Protocol Last Titration: 11/02/18 23:20 Dose: 16 munits/min, 96 mls/hr Oxytocin/Lactated Ringer's (Pitocin In Lr 10 Units/1,000 Ml) 10 unit in 1,000 mls @ 500 mls/hr IV ASDIRECTED [facility] Nalbuphine HCl (Nubain) 10 mg IVPUSH Q2H PRN PRN Reason: pain Ondansetron HCl (Zofran) 4 mg IVPUSH Q4H PRN PRN Reason: Nausea/Vomiting Sodium Chloride (Saline Flush) 10 ml FLUSH ASDIRECTED PRN PRN Reason: Keep Vein Open
[2018-11-04 09:28] VITALS: BP 131/81
== END 2018-11-04 12:50 | disposition home or self-care (01) | DRG 560 ==
LOC: JD.OB 01:50 → OBSVTOIN 11-03 01:50 → JD.OB 11-03 01:51
PROVIDERS: ADMIT Obstetrics & Gynecology; ATTEND Obstetrics & Gynecology
PROC: 10E0XZZ Delivery of Products of Conception, External Approach (ICD-10-PCS; principal; 2018-11-03)
PROC: 10907ZC Drainage of Amniotic Fluid, Therapeutic from Products of Conception, Via Natural or Artificial Opening (ICD-10-PCS; 2018-11-03)
PROC: 3E033VJ Introduction of Other Hormone into Peripheral Vein, Percutaneous Approach (ICD-10-PCS; 2018-11-03)
PROC: 0KQM0ZZ Repair Perineum Muscle, Open Approach (ICD-10-PCS; 2018-11-03)
PROC: 4A1HXCZ Monitoring of Products of Conception, Cardiac Rate, External Approach (ICD-10-PCS; 2018-11-03)
DX: O13.3 Gestational [pregnancy-induced] hypertension without significant proteinuria, third trimester (principal); O69.81X0 Labor and delivery complicated by cord around neck, without compression, not applicable or unspecified; O99.824 Streptococcus B carrier state complicating childbirth; O70.1 Second degree perineal laceration during delivery; O99.214 Obesity complicating childbirth; E66.9 Obesity, unspecified; Z3A.39 39 weeks gestation of pregnancy; Z37.0 Single live birth
CPT/HCPCS: 36415; 51702; 59025; 59409; 82565; 82570; 84156; 84450; 84460; 85025; 86592; 86850; 86900; 86901; A9270-GY; J0690; J2590; J3490; J7120

== ENCOUNTER 2020-01-02 11:25 | Inpatient (IN) | payer OTHER ==
[2020-01-02] MEDS ORDERED: Sodium Chloride 0.9% 10 ML Syringe FLUSH PRN (11:43)
[2020-01-02] MEDS ORDERED: Nalbuphine 10 MG/ML Syringe IVPUSH PRN (11:43)
[2020-01-02] MEDS ORDERED: Oxytocin/Lactated Ringers 10 UNIT/1,000 ML BAG IV SCH ×2 (11:45)
--- NOTE | 2020-01-02 11:46 | PCM.LDHP ---
L&D History of Present Illness - General Date of Service: 01/02/20 Admit Problem/Dx: Patient Status Order with Admit Dx/Problem 01/02/20 11:43 Patient Status [ADT] Routine Admission Diagnosis/Problem Admission Diagnosis/Problem Gestational hypertension Source of Information: Patient History Limitations: Reports: No Limitations - History of Present Illness Introduction:: Patient is a 29 y/o at 38 0/7 wks who presents for IOL for findings of mild range BP's in clinic. Doing well otherwise. Notes good FM. Asymptomatic. - Related Data Allergies/Adverse Reactions: Allergies Allergy/AdvReac Type Severity Reaction Status Date / Time gluten Allergy Mild Other Verified 11/02/18 16:15 amoxicillin Allergy Other Verified 11/02/18 16:15 Home Medications: Home Meds Pnv No.95/Ferrous Fum/Folic AC [ Tablet] 1 tab PO DAILY 11/02/18 [H istory] Past Medical History Gastrointestinal History: Reports: Celiac Disease PR INTERN History: Reports: , Spontaneous : 4 Para: 2 LMP (Approximate): - Past Surgical History HEENT Surgical History: Reports: Oral Surgery GI Surgical History: Reports: Colonoscopy, EGD Social & Family History - Family History Family Medical History: Noncontributory - Tobacco Use Smoking Status *Q: Never Smoker - Caffeine Use Caffeine Use: Reports: None - Alcohol Use Alcohol Use History: No - Recreational Drug Use Recreational Drug Use: No H&P Review of Systems - Review of Systems: Review Of Systems: See Below General: Reports: No Symptoms Pulmonary: Reports: No Symptoms Cardiovascular: Reports: No Symptoms Gastrointestinal: Reports: No Symptoms Genitourinary: Reports: No Symptoms Musculoskeletal: Reports: No Symptoms Psychiatric: Reports: No Symptoms Neurological: Reports: No Symptoms L&D Exam - Exam Exam: See Below - OB Specific Contraction Intensity: Irritability Movement: Active Heart Tones: Present Heart Tones per Min: 140 Heart Rate (FHR) Variability: Moderate (6-25 bmp) Presentation: Vertex - Fuentes Score Fuentes Score Cervix Position: Posterior Fuentes Score Consistency: Soft Fuentes Score Effacement: 51-70% Fuentes Score Dilation: 1-2 cm Fuentes Score 's Station: -2 Fuentes Score Total: 6 - Exam General: Alert, Oriented, Cooperative Lungs: Clear to Auscultation, Normal Respiratory Effort Cardiovascular: Regular Rate, Regular Rhythm GI/Abdominal Exam: Soft, Non-Tender Genitourinary: Normal external exam Extremities: Normal Inspection Skin: Warm, Dry, Intact - Patient Data Result Diagrams: 01/02/20 12:25 01/02/20 12:25 - Problem List (1) 38 weeks gestation of SNOMED Code(s): 71832796 ICD Code: Z3A.38 - 38 WEEKS GESTATION OF Status: Acute Current Visit: Yes (2) GBS carrier SNOMED Code(s): 9325237980465 ICD Code: Z22.330 - CARRIER OF GROUP B STREPTOCOCCUS Status: Acute Current Visit: No (3) Gestational hypertension SNOMED Code(s): 498042960 ICD Code: O13.9 - GESTATIONAL HTN W/O SIGNIFICANT PROTEINURIA, UNSP TRIMESTER Status: Acute Current Visit: No Qualifiers: Trimester: third trimester Qualified Code(s): O13.3 - Gestational [pregnanc y-induced] hypertension without significant proteinuria, third trimester Problem List Initiated/Reviewed/Updated: Yes Orders Last 24hrs: Active Orders 24 hr Category Date Time Status Patient Status [ADT] Routine ADT 01/02/20 11:43 Ordered Activity as Tolerated [RC] PFP Care 01/02/20 11:43 Ordered Communication Order [RC] ASDIRECTED Care 01/02/20 11:43 Ordered Communication Order [RC] ASDIRECTED Care 01/02/20 11:43 Ordered Communication Order [RC] ASDIRECTED Care 01/02/20 11:43 Ordered Non Stress Test [RC] PER UNIT ROUTINE Care 01/02/20 11:43 Ordered Notify Provider [RC] ASDIRECTED Care 01/02/20 11:43 Ordered Notify Provider [RC] PRN Care 01/02/20 11:43 Ordered Peripheral IV Care [RC] . DIRECTED Care 01/02/20 11:43 Ordered Up ad Nicole [RC] ASDIRECTED Care 01/02/20 11:43 Ordered Vital Signs [RC] ASDIRECTED Care 01/02/20 11:43 Ordered Vital Signs [RC] PER UNIT ROUTINE Care 01/02/20 11:43 Ordered Regular Diet [DIET] Diet 01/02/20 Lunch Ordered ALANINE AMINOTRANSFERASE,ALT [CHEM] Routine Lab 01/02/20 11:43 Ordered ASPARTATE AMNIOTRANSFERASE,AST [CHEM] Routine Lab 01/02/20 11:43 Ordered CBC W/O DIFF,HEMOGRAM [HEME] Routine Lab 01/02/20 11:43 Ordered CREATININE W/GFR [CHEM] Routine Lab 01/02/20 11:43 Ordered PROTEIN/CREATININE RATIO,URINE [URCHEM] Routine Lab 01/02/20 11:43 Ordered RAPID PLASMA REAGIN,RPR [CHEM] Routine Lab 01/02/20 11:43 Ordered TYPE AND SCREEN [BBK] Routine Lab 01/02/20 11:43 Ordered Lactated Ringers [Ringers, Lactated] 1,000 ml Med 01/02/20 11:45 Ordered IV ASDIRECTED Nalbuphine [Nubain] Med 01/02/20 11:43 Ordered 10 mg IVPUSH Q2H PRN Oxytocin/Lactated Ringers [Pitocin in LR 10 Units/1,000 Med 01/02/20 11:45 Ordered ML] 10 unit in 1,000 ml IV .CONTINUOUS Oxytocin/Lactated Ringers [Pitocin in LR 10 Units/1,000 Med 01/02/20 11:45 Ordered ML] 10 unit in 1,000 ml IV TITRATE Sodium Chloride 0.9% [Saline Flush] Med 01/02/20 11:43 Ordered 10 ml FLUSH ASDIRECTED PRN ceFAZolin [Ancef] 1 gm Med 01/02/20 14:00 Ordered Premix Bag 1 bag IV Q8HR ceFAZolin [Ancef] 2 gm Med 01/02/20 11:43 Ordered Premix Bag 1 bag IV ONETIME Electronic Heart Tones Internal [WOMSER] Per Unit Oth 01/02/20 11:43 Ordered Routine Peripheral IV Insertion Adult [OM.PC] Routine Oth 01/02/20 11:43 Ordered Resuscitation Status Routine Resus Stat 01/02/20 11:43 Ordered Assessment/Plan Comment:: * Labs done and normal * Ancef for GBS positive status * Pitocin and AROM * Monitor BP's closely * Pain management per patient preference * Anticipate
[2020-01-02] MEDS ORDERED: ceFAZolin 2 GM in Premix Bag 1 BAG IV ONE (12:00)
[2020-01-02] MEDS: Lactated Ringers 1,000 ML IV SCH ×3 (12:43→18:09)
[2020-01-02] MEDS ORDERED: Bupivacaine/fentaNYL/NS 100 ML Bag EPIDUR PRN (13:16)
[2020-01-02] MEDS ORDERED: ePHEDrine 50 MG/ML SDV IVPUSH PRN (13:16)
[2020-01-02] MEDS ORDERED: fentaNYL 100 MCG/2 ML SDV EPIDUR PRN (13:16)
[2020-01-02] MEDS ORDERED: diphenhydrAMINE 50 MG/ML SDV IVPUSH PRN (13:16)
--- NOTE | 2020-01-02 17:51 | PCM.PREANE ---
Preanesthetic Assessment - Procedure Proposed Procedure: epidural - Anesthesia/Transfusion/Family Hx Anesthesia History: Prior Anesthesia Without Reaction Family History of Anesthesia Reaction: No Transfusion History: No Prior Transfusion(s) Intubation History: Unknown - Review of Systems General: Fatigue Pulmonary: No Symptoms Cardiovascular: No Symptoms, Other (HTN) Gastrointestinal: Abdominal Pain (labor) Neurological: No Symptoms Other: Reports: None - Physical Assessment Vital Signs: Last Vital Signs Temp 36.9 C 01/02/20 11:43 Pulse 90 01/02/20 11:43 Resp 20 01/02/20 11:43 BP 136/88 01/02/20 11:43 Pulse Ox 100 01/02/20 13:16 Height: 1.75 m Weight: 117.48 kg ASA Class: 2 Mental Status: Alert & Oriented x3 Airway Class: Mallampati = 1 Dentition: Reports: Normal Dentition Thyro-Mental Finger Breadths: 3 Mouth Opening Finger Breadths: 3 ROM/Head Extension: Full Lungs: Clear to Auscultation, Normal Respiratory Effort Cardiovascular: Regular Rate, Regular Rhythm - Lab Values: Laboratory Last Values WBC 9.49 K/mm3 (3.98-10.04) 01/02/20 12:25 RBC 4.70 M/mm3 (3.98-5.22) 01/02/20 12:25 Hgb 12.3 gm/dl (11.2-15.7) 01/02/20 12:25 Hct 39.2 % (34.1-44.9) 01/02/20 12:25 MCV 83.4 fl (79.4-94.8) 01/02/20 12:25 MCH 26.2 pg (25.6-32.2) 01/02/20 12:25 MCHC 31.4 g/dl (32.2-35.5) L 01/02/20 12:25 RDW Std Deviation 41.9 fL (36.4-46.3) 01/02/20 12:25 Plt Count 283 K/mm3 (182-369) 01/02/20 12:25 MPV 11.3 fl (9.4-12.3) 01/02/20 12:25 Creatinine 0.8 mg/dL (0.55-1.02) 01/02/20 12:25 Est Cr Clr Drug Dosing 102.78 mL/min 01/02/20 12:25 Estimated GFR (MDRD) > 60 mL/min (>60) 01/02/20 12:25 AST 21 U/L (15-37) 01/02/20 12:25 ALT 25 U/L (14-59) 01/02/20 12:25 Ur Random Creatinine 90.9 mg/dL (30.0-125.0) 01/02/20 12:35 U Random Total Protein 7.6 mg/dL (0.0-11.8) 01/02/20 12:35 Protein/Creatinin Ratio 83.6 mg/g (0-149) 01/02/20 12:35 COVID-19 (ADRIANNE) Negative (NEGATIVE) 01/02/20 11:42 Blood Type AB POSITIVE 01/02/20 12:25 Gel Antibody Screen Negative 01/02/20 12:25 - Allergies Allergies/Adverse Reactions: Allergies Allergy/AdvReac Type Severity Reaction Status Date / Time gluten Allergy Mild Other Verified 11/02/18 16:15 amoxicillin Allergy Other Verified 11/02/18 16:15 - Anesthesia Plan Pre-Op Medication Ordered: None - Acknowledgements Anesthesia Type Planned: Epidural Pt an Appropriate Candidate for the Planned Anesthesia: Yes Alternatives and Risks of Anesthesia Discussed w Pt/Guardian: Yes Pt/Guardian Understands and Agrees with Anesthesia Plan: Yes PreAnesthesia Questionnaire Gastrointestinal History: Reports: Celiac Disease, GERD 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: , 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 Endocrine/Metabolic History: Reports: Obesity/BMI 30+ - Past Surgical History HEENT Surgical History: Reports: Oral Surgery GI Surgical History: Reports: None, Colonoscopy, EGD - SUBSTANCE USE Smoking Status *Q: Never Smoker Second Hand Smoke Exposure: No Recreational Drug Use History: No - HOME MEDS Home Medications: Home Meds Pnv No.95/Ferrous Fum/Folic AC [ Tablet] 1 tab PO DAILY 11/02/18 [History] - CURRENT (IN HOUSE) MEDS Current Meds: Current Medications Diphenhydramine HCl (Benadryl) 25 mg IVPUSH Q6H PRN PRN Reason: pruritis Ephedrine Sulfate (Ephedrine Sulfate) 5 mg IVPUSH ASDIRECTED PRN PRN Reason: Hypotension Fentanyl (Sublimaze) 100 mcg EPIDUR Q3H PRN PRN Reason: Pain Last Admin: 01/02/20 17:10 Dose: 100 mcg Documented by: Fentanyl/Bupivacaine HCl (Fentanyl/Bupivacaine/Ns 2 Mcg-0.125% 100 Ml) 100 ml EPIDUR ASDIRECTED PRN PRN Reason: Pain Last Admin: 01/02/20 17:10 Dose: 100 ml Documented by: Oxytocin/Lactated Ringer's (Pitocin In Lr 10 Units/1,000 Ml) 10 unit in 1,000 mls @ 12 mls/hr IV TITRATE [facility]; Protocol Last Titration: 01/02/20 16:45 Dose: 12 munits/min, 72 mls/hr Documented by: Cefazolin Sodium/Dextrose 1 gm (/ Premix) 50 mls @ 100 mls/hr IV Q8H [facility] Oxytocin/Lactated Ringer's (Pitocin In Lr 10 Units/1,000 Ml) 10 unit in 1,000 mls @ 500 mls/hr IV .CONTINUOUS [facility] Lactated Ringer's (Ringers, Lactated) 1,000 mls @ 40 mls/hr IV ASDIRECTED [facility] Last Admin: 01/02/20 17:09 Dose: 40 mls/hr Documented by: Nalbuphine HCl (Nubain) 10 mg IVPUSH Q2H PRN PRN Reason: Pain Sodium Chloride (Saline Flush) 10 ml FLUSH ASDIRECTED PRN PRN Reason: Keep Vein Open Discontinued Medications Cefazolin Sodium/Dextrose 2 gm (/ Premix) 50 mls @ 100 mls/hr IV ONETIME ONE Stop: 01/02/20 12:29 Last Admin: 01/02/20 12:42 Dose: 100 mls/hr Documented by:
[2020-01-02] MEDS ORDERED: ceFAZolin 1 GM in Premix Bag 1 BAG IV SCH (20:00)
[2020-01-03] MEDS ORDERED: ePHEDrine 50 MG/ML SDV ONE
[2020-01-03] MEDS ORDERED: Bupivacaine 0.25% 10 ML SDV ONE
--- NOTE | 2020-01-03 00:24 | PCM.DEL ---
L & D Note - General Info Date of Service: 01/03/20 - Delivery Note Labor: Induced by ARM, Induced by Oxytocin Delivery Outcome: Livebirth Infant Delivery Method: Spontaneous Vaginal Delivery-Single Infant Delivery Mode: Spontaneous Presentation: Left Occiput Anterior (SHANIKA) Nuchal Cord: Present Anesthesia Type: Epidural Amniotic Fluid Description: Clear Episiotomy Type: None Laceration: 1st Degree Suture type: Vicryl Suture size: 2-0 Placenta: Intact, Spontaneous Cord: 3 Vessels Estimated Blood Loss: 100 Resuscitation Needed: Yes [place]: Bulb Syringe, Stimulated, Warmed, [place] Used, Warmer Used Delivery Comments (Free Text/Narrative):: Patient found to be complete and began pushing. With maternal pushing effort head delivered from an SHANIKA presentation. Nuchal cord present, but patient baby delivered quickly and no time to be reduced. Gentle downward traction delivered shoulders and body. placed on maternal abdomen. Cord clamped and cut. Cord blood obtained. Placenta allowed time to separate and expelled intact. Inspection of perineum showed small 1st degree which was repaired with interrupted suture of 2-0 Vicryl - General Info Date of Service: 01/03/20 - Patient Data Vitals - Most Recent: Last Vital Signs Temp 36.9 C 01/02/20 11:43 Pulse 90 01/02/20 11:43 Resp 20 01/02/20 11:43 BP 136/88 01/02/20 11:43 Pulse Ox 100 01/02/20 13:16 Weight - Most Recent: 117.48 kg - Problem List & Annotations (1) 38 weeks gestation of SNOMED Code(s): 66207447 Code(s): Z3A.38 - 38 WEEKS GESTATION OF Status: Acute Current Visit: Yes (2) GBS carrier SNOMED Code(s): 3561608053362 Code(s): Z22.330 - CARRIER OF GROUP B STREPTOCOCCUS Status: Acute Current Visit: No (3) Gestational hypertension SNOMED Code(s): 106728326 Code(s): O13.9 - GESTATIONAL HTN W/O SIGNIFICANT PROTEINURIA, UNSP TRIMESTER Status: Acute Current Visit: No Qualifiers: Trimester: third trimester Qualified Code(s): O13.3 - Gestational [-induced] hypertension without significant proteinuria, third trimester (4) Vaginal delivery SNOMED Code(s): 016087783 Code(s): O80 - ENCOUNTER FOR FULL-TERM UNCOMPLICATED DELIVERY Status: Acute Current Visit: No - Problem List Review Problem List Initiated/Reviewed/Updated: Yes - My Orders Last 24 Hours: My Active Orders 01/02/20 Lunch Regular Diet [DIET] 01/02/20 11:43 Patient Status [ADT] Routine Activity as Tolerated [RC] PFP Communication Order [RC] ASDIRECTED Communication Order [RC] ASDIRECTED Communication Order [RC] ASDIRECTED Notify Provider [RC] ASDIRECTED Notify Provider [RC] PRN Peripheral IV Care [RC] . DIRECTED Up ad Nicole [RC] ASDIRECTED Vital Signs [RC] ASDIRECTED Nalbuphine [Nubain] 10 mg IVPUSH Q2H PRN Sodium Chloride 0.9% [Saline Flush] 10 ml FLUSH ASDIRECTED PRN Electronic Heart Tones Internal [WOMSER] Per Unit Routine Peripheral IV Insertion Adult [OM.PC] Routine Resuscitation Status Routine 01/02/20 11:45 Lactated Ringers [Ringers, Lactated] 1,000 ml IV ASDIRECTED Oxytocin/Lactated Ringers [Pitocin in LR 10 Units/1,000 ML] 10 unit in 1,000 ml IV .CONTINUOUS Oxytocin/Lactated Ringers [Pitocin in LR 10 Units/1,000 ML] 10 unit in 1,000 ml IV TITRATE 01/02/20 20:00 ceFAZolin [Ancef] 1 gm Premix Bag 1 bag IV Q8H - Assessment Assessment:: PPD#0 - Plan Plan:: * Routine cares * Breast feeding * Monitor BP's closely * Discharge home 1-2 days
[2020-01-03] MEDS ORDERED: Witch Hazel Medicated Pads 40/Jar TOP PRN (01:25)
[2020-01-03] MEDS ORDERED: Ibuprofen 600 MG Tab PO PRN (01:25)
[2020-01-03] MEDS ORDERED: Acetaminophen 325 MG Tab PO PRN (01:25)
[2020-01-03] MEDS ORDERED: Benzocaine/Menthol 20%-0.5% Spray 56 GM Canister TOP PRN (01:25)
[2020-01-03] MEDS ORDERED: Docusate Sodium 100 MG Cap PO PRN (01:25)
--- NOTE | 2020-01-03 07:41 | PCM48HPAN ---
Post Anesthesia Note - EVALUATION WITHIN 48HRS OF ANESTHETIC Vital Signs in Normal Range: Yes Patient Participated in Evaluation: Yes Respiratory Function Stable: Yes Airway Patent: Yes Cardiovascular Function Stable: Yes Hydration Status Stable: Yes Pain Control Satisfactory: Yes Nausea and Vomiting Control Satisfactory: Yes Mental Status Recovered: Yes Vital Signs: Last Vital Signs Temp 36.3 C 01/03/20 03:03 Pulse 68 01/03/20 03:03 Resp 16 01/03/20 03:03 BP 145/89 H 01/03/20 03:03 Pulse Ox 96 01/03/20 03:03
--- NOTE | 2020-01-04 07:03 | PCM.PNPP ---
- General Info Date of Service: 01/04/20 Functional Status: Reports: Pain Controlled, Tolerating Diet, Ambulating, Urinating - Review of Systems General: Reports: No Symptoms Pulmonary: Reports: No Symptoms Cardiovascular: Reports: No Symptoms Gastrointestinal: Reports: No Symptoms Genitourinary: Reports: No Symptoms Musculoskeletal: Reports: No Symptoms Neurological: Reports: No Symptoms - Patient Data Vital Signs - Most Recent: Last Vital Signs Temp 36.0 C L 01/04/20 04:55 Pulse 80 01/04/20 04:55 Resp 14 01/04/20 04:55 BP 138/88 01/04/20 04:55 Pulse Ox 95 01/04/20 04:55 Weight - Most Recent: 117.48 kg I&O - Last 24 Hours: Intake & Output 01/03/20 01/04/20 01/04/20 22:59 06:59 14:59 Intake Total 120 Balance 120 Med Orders - Current: Current Medications Acetaminophen (Tylenol) 650 mg PO Q4H PRN PRN Reason: mild pain or fever Benzocaine/Menthol (Dermoplast Pain Relief [place]) 0 gm TOP ASDIRECTED PRN PRN Reason: Perineal Comfort Measure Last Admin: 01/03/20 03:05 Dose: 1 can Documented by: Docusate Sodium (Colace) 100 mg PO BID PRN PRN Reason: Constipation Ibuprofen (Motrin) 600 mg PO Q4H PRN PRN Reason: Mild pain or fever Witch Karli (Tucks) 1 pad TOP ASDIRECTED PRN PRN Reason: Perineal Comfort Measure Last Admin: 01/03/20 03:05 Dose: 1 jar Documented by: Discontinued Medications Bupivacaine HCl (Sensorcaine-Mpf 0.25%) 10 ml .ROUTE .STK-MED ONE Stop: 01/03/20 00:01 Diphenhydramine HCl (Benadryl) 25 mg IVPUSH Q6H PRN PRN Reason: pruritis Ephedrine Sulfate (Ephedrine Sulfate) 5 mg IVPUSH ASDIRECTED PRN PRN Reason: Hypotension Ephedrine Sulfate (Ephedrine Sulfate) 50 mg .ROUTE .STK-MED ONE Stop: 01/03/20 00:01 Fentanyl (Sublimaze) 100 mcg EPIDUR Q3H PRN PRN Reason: Pain Last Admin: 08/10/20 17:10 Dose: 100 mcg Documented by: Fentanyl/Bupivacaine HCl (Fentanyl/Bupivacaine/Ns 2 Mcg-0.125% 100 Ml) 100 ml EPIDUR ASDIRECTED PRN PRN Reason: Pain Last Admin: 01/02/20 17:10 Dose: 100 ml Documented by: Oxytocin/Lactated Ringer's (Pitocin In Lr 10 Units/1,000 Ml) 10 unit in 1,000 mls @ 12 mls/hr IV TITRATE MICAELA; Protocol Last Titration: 01/02/20 23:16 Dose: 22 munits/min, 132 mls/hr Documented by: Cefazolin Sodium/Dextrose 2 gm (/ Premix) 50 mls @ 100 mls/hr IV ONETIME ONE Stop: 01/02/20 12:29 Last Admin: 01/02/20 12:42 Dose: 100 mls/hr Documented by: Cefazolin Sodium/Dextrose 1 gm (/ Premix) 50 mls @ 100 mls/hr IV Q8H MICAELA Last Admin: 01/02/20 19:59 Dose: 100 mls/hr Documented by: Oxytocin/Lactated Ringer's (Pitocin In Lr 10 Units/1,000 Ml) 10 unit in 1,000 mls @ 500 mls/hr IV .CONTINUOUS MICAELA Lactated Ringer's (Ringers, Lactated) 1,000 mls @ 40 mls/hr IV ASDIRECTED MICAELA Last Admin: 01/02/20 18:09 Dose: 150 mls/hr Documented by: Nalbuphine HCl (Nubain) 10 mg IVPUSH Q2H PRN PRN Reason: Pain Sodium Chloride (Saline Flush) 10 ml FLUSH ASDIRECTED PRN PRN Reason: Keep Vein Open - Infant Interaction Disposition, : in Room with Family Infant Interaction: Holding Infant Feeding: Attempted ; Nursed Fair/Poor Support Person: - Recovery Exam Fundal Tone: Firm Fundal Level: 1 Fingerbreadths Below Umbilicus Fundal Placement: Midline Lochia Amount: Small Lochia Color: Rubra/Red Perineum Description: Intact, Minimal Bruising/Swelling Episiotomy/Laceration: None Bladder Status: Voiding Urinary Elimination: Voided - Exam General: Alert, Oriented, Cooperative GI/Abdominal Exam: Soft, Non-Tender Extremities: Normal Inspection Skin: Warm, Dry, Intact - Problem List & Annotations (1) 38 weeks gestation of SNOMED Code(s): 38647854 Code(s): Z3A.38 - 38 WEEKS GESTATION OF Status: Acute Current Visit: Yes (2) GBS carrier SNOMED Code(s): 4998156578647 Code(s): Z22.330 - CARRIER OF GROUP B STREPTOCOCCUS Status: Acute Current Visit: No (3) Gestational hypertension SNOMED Code(s): 784032550 Code(s): O13.9 - GESTATIONAL HTN W/O SIGNIFICANT PROTEINURIA, UNSP TRIMESTER Status: Acute Current Visit: No Qualifiers: Trimester: third trimester Qualified Code(s): O13.3 - Gestational [pregnan cy-induced] hypertension without significant proteinuria, third trimester (4) Vaginal delivery SNOMED Code(s): 734209523 Code(s): O80 - ENCOUNTER FOR FULL-TERM UNCOMPLICATED DELIVERY Status: Acute Current Visit: No - Problem List Review Problem List Initiated/Reviewed/Updated: Yes - My Orders Last 24 Hours: My Active Orders 01/03/20 Breakfast Regular Diet [DIET] 01/04/20 01:25 Heat Therapy [OM.PC] PRN 01/04/20 07:03 Ready for Discharge [RC] PER UNIT ROUTINE - Assessment Assessment:: PPD#1 - Plan Plan:: * Routine cares * Breast feeding * BP's upper normal to mild range. Will return in 1 week for BP check in office * Discharge home today
--- NOTE | 2020-01-04 07:04 | PCM.DCSUM1 ---
Discharge Summary - Discharge Data Discharge Date: 01/04/20 Discharge Disposition: Home, Self-Care 01 Condition: Good - Referral to Home Health Primary Care Physician: PCP None - Discharge Diagnosis/Problem(s) (1) 38 weeks gestation of SNOMED Code(s): 30218280 ICD Code: Z3A.38 - 38 WEEKS GESTATION OF Status: Acute Current Visit: Yes (2) GBS carrier SNOMED Code(s): 4277808891415 ICD Code: Z22.330 - CARRIER OF GROUP B STREPTOCOCCUS Status: Acute Current Visit: No (3) Gestational hypertension SNOMED Code(s): 559289655 ICD Code: O13.9 - GESTATIONAL HTN W/O SIGNIFICANT PROTEINURIA, UNSP TRIMESTER Status: Acute Current Visit: No Qualifiers: Trimester: third trimester Qualified Code(s): O13.3 - Gestational [-induced] hypertension without significant proteinuria, third trimester (4) Vaginal delivery SNOMED Code(s): 068637203 ICD Code: O80 - ENCOUNTER FOR FULL-TERM UNCOMPLICATED DELIVERY Status: Acute Current Visit: No - Patient Summary/Data Complications: None Consults: None Recommended Follow-up Testing/Procedures: Follow up in 1 week for BP check and 3 weeks for check Hospital Course: 29 y/o at 38 0/7 wks who presented for IOL for gestational HTN. IOL done with pitocin/AROM. Progressed well to complete dilation and underwent an uncomplicated . See delivery note. BP's remained normal to mild range. Discharged hoem on PPD#1 - Patient Instructions Diet: Regular Diet as Tolerated Activity: As Tolerated Activity, Other: Pelvic rest for 6 weeks Driving: May Drive Today Showering/Bathing: May Shower Showering/Bathing, Other: May Bathe Notify Provider of: Fever, Increased Pain, Swelling and Redness, Drainage, Nausea and/or Vomiting - Discharge Plan *PRESCRIPTION DRUG MONITORING PROGRAM REVIEWED*: No *COPY OF PRESCRIPTION DRUG MONITORING REPORT IN PATIENT OLAYINKA: No Home Medications: Home Meds Pnv No.95/Ferrous Fum/Folic AC [ Tablet] 1 tab PO DAILY 11/02/18 [History] Docusate Sodium [Colace] 100 mg PO BID PRN cap 01/03/20 [Rx] Ibuprofen [Motrin] 600 mg PO Q4H PRN tablet 01/03/20 [Rx] Patient Handouts: Breast Pumping Tips, and Self-Care, Hypertension, Care After Vaginal Delivery Referrals: Alina Wesley MD [Physician] - (1 week for RN only BP check 3 weeks for check ) - Discharge Summary/Plan Comment DC Time >30 min.: No - Patient Data Vitals - Most Recent: Last Vital Signs Temp 36.0 C L 01/04/20 04:55 Pulse 80 01/04/20 04:55 Resp 14 01/04/20 04:55 BP 138/88 01/04/20 04:55 Pulse Ox 95 01/04/20 04:55 Weight - Most Recent: 117.48 kg I&O - Last 24 hours: Intake & Output 01/03/20 01/04/20 01/04/20 22:59 06:59 14:59 Intake Total 120 Balance 120 Med Orders - Current: Current Medications Acetaminophen (Tylenol) 650 mg PO Q4H PRN PRN Reason: mild pain or fever Benzocaine/Menthol (Dermoplast Pain Relief [place]) 0 gm TOP ASDIRECTED PRN PRN Reason: Perineal Comfort Measure Last Admin: 01/03/20 03:05 Dose: 1 can Documented by: Docusate Sodium (Colace) 100 mg PO BID PRN PRN Reason: Constipation Ibuprofen (Motrin) 600 mg PO Q4H PRN PRN Reason: Mild pain or fever Witch Karli (Tucks) 1 pad TOP ASDIRECTED PRN PRN Reason: Perineal Comfort Measure Last Admin: 01/03/20 03:05 Dose: 1 jar Documented by: Discontinued Medications Bupivacaine HCl (Sensorcaine-Mpf 0.25%) 10 ml .ROUTE .STK-MED ONE Stop: 01/03/20 00:01 Diphenhydramine HCl (Benadryl) 25 mg IVPUSH Q6H PRN PRN Reason: pruritis Ephedrine Sulfate (Ephedrine Sulfate) 5 mg IVPUSH ASDIRECTED PRN PRN Reason: Hypotension Ephedrine Sulfate (Ephedrine Sulfate) 50 mg .ROUTE .STK-MED ONE Stop: 01/03/20 00:01 Fentanyl (Sublimaze) 100 mcg EPIDUR Q3H PRN PRN Reason: Pain Last Admin: 01/02/20 17:10 Dose: 100 mcg Documented by: Fentanyl/Bupivacaine HCl (Fentanyl/Bupivacaine/Ns 2 Mcg-0.125% 100 Ml) 100 ml EPIDUR ASDIRECTED PRN PRN Reason: Pain Last Admin: 01/02/20 17:10 Dose: 100 ml Documented by: Oxytocin/Lactated Ringer's (Pitocin In Lr 10 Units/1,000 Ml) 10 unit in 1,000 mls @ 12 mls/hr IV TITRATE MICAELA; Protocol Last Titration: 01/02/20 23:16 Dose: 22 munits/min, 132 mls/hr Documented by: Cefazolin Sodium/Dextrose 2 gm (/ Premix) 50 mls @ 100 mls/hr IV ONETIME ONE Stop: 01/02/20 12:29 Last Admin: 01/02/20 12:42 Dose: 100 mls/hr Documented by: Cefazolin Sodium/Dextrose 1 gm (/ Premix) 50 mls @ 100 mls/hr IV Q8H MICAELA Last Admin: 01/02/20 19:59 Dose: 100 mls/hr Documented by: Oxytocin/Lactated Ringer's (Pitocin In Lr 10 Units/1,000 Ml) 10 unit in 1,000 mls @ 500 mls/hr IV .CONTINUOUS MICAELA Lactated Ringer's (Ringers, Lactated) 1,000 mls @ 40 mls/hr IV ASDIRECTED MICAELA Last Admin: 01/02/20 18:09 Dose: 150 mls/hr Documented by: Nalbuphine HCl (Nubain) 10 mg IVPUSH Q2H PRN PRN Reason: Pain Sodium Chloride (Saline Flush) 10 ml FLUSH ASDIRECTED PRN PRN Reason: Keep Vein Open
== END 2020-01-04 10:07 | disposition home or self-care (01) | DRG 807 ==
LOC: JD.OBCHECK 11:25 → JD.OB 11:36 → OBSVTOIN 01-03 00:11 → JD.OB 01-03 00:12
PROVIDERS: ADMIT Obstetrics & Gynecology; ATTEND Obstetrics & Gynecology
PROC: 10E0XZZ Delivery of Products of Conception, External Approach (ICD-10-PCS; principal; 2020-01-03)
PROC: 10907ZC Drainage of Amniotic Fluid, Therapeutic from Products of Conception, Via Natural or Artificial Opening (ICD-10-PCS; 2020-01-03)
PROC: 0HQ9XZZ Repair Perineum Skin, External Approach (ICD-10-PCS; 2020-01-03)
PROC: 3E033VJ Introduction of Other Hormone into Peripheral Vein, Percutaneous Approach (ICD-10-PCS; 2020-01-03)
PROC: 3E0R3BZ Introduction of Anesthetic Agent into Spinal Canal, Percutaneous Approach (ICD-10-PCS; 2020-01-03)
PROC: 00HU33Z Insertion of Infusion Device into Spinal Canal, Percutaneous Approach (ICD-10-PCS; 2020-01-03)
DX: O13.4 Gestational [pregnancy-induced] hypertension without significant proteinuria, complicating childbirth (principal); Z37.0 Single live birth; O70.0 First degree perineal laceration during delivery; Z11.59 Encounter for screening for other viral diseases; O69.81X0 Labor and delivery complicated by cord around neck, without compression, not applicable or unspecified; Z3A.38 38 weeks gestation of pregnancy; Z88.0 Allergy status to penicillin; Z88.8 Allergy status to other drugs, medicaments and biological substances
CPT/HCPCS: 01967; 36415; 51702; 59025; 59409; 82565; 82570; 84156; 84450; 84460; 85027; 86592; 86850; 86900; 86901; A9270-GY; J0690; J2590; J3010; J3490; J7120; U0002

== ENCOUNTER 2022-01-22 14:55 | Inpatient (IN) | payer BC ==
[2022-01-22] MEDS ORDERED: Sodium Chloride 0.9% 10 ML Syringe FLUSH PRN (16:19)
[2022-01-22] MEDS ORDERED: Ondansetron 4 MG/2 ML SDV IVPUSH PRN (16:19)
[2022-01-22] MEDS ORDERED: Nalbuphine HCl 10 MG/ 1ML Amp IVPUSH PRN (16:19)
[2022-01-22] MEDS ORDERED: Oxytocin/Lactated Ringers 10 UNIT/1,000 ML BAG IV SCH ×2 (16:30)
[2022-01-22] MEDS: Lactated Ringers 1,000 ML IV SCH ×2 (18:13→21:14)
[2022-01-22] MEDS ORDERED: ePHEDrine 50 MG/ML SDV IVPUSH PRN (19:54)
[2022-01-22] MEDS ORDERED: fentaNYL 100 MCG/2 ML SDV EPIDUR PRN (19:54)
[2022-01-22] MEDS ORDERED: Bupivacaine/fentaNYL/NS 100 ML Bag EPIDUR PRN (19:54)
[2022-01-22] MEDS ORDERED: diphenhydrAMINE 50 MG/ML SDV IVPUSH PRN (19:54)
[2022-01-22] MEDS ORDERED: Sodium Chloride 0.9% 10 ML Syringe FLUSH SCH (21:00)
[2022-01-22] MEDS ORDERED: Oxytocin/Lactated Ringers 20 UNIT/1,000 ML BAG IV SCH (23:45)
[2022-01-23] MEDS ORDERED: Bupivacaine 0.25% 10 ML SDV ONE
[2022-01-23] MEDS ORDERED: Benzocaine/Menthol 20%-0.5% Spray 78 GM Cannister TOP PRN (01:59)
[2022-01-23] MEDS ORDERED: Witch Hazel Medicated Pads 40/Jar TOP PRN (01:59)
[2022-01-23] MEDS ORDERED: Acetaminophen 325 MG Tab PO PRN (01:59)
[2022-01-23] MEDS: Docusate Sodium 100 MG Cap PO PRN ×2 (03:14→15:13)
[2022-01-23] MEDS: Ibuprofen 600 MG Tab PO PRN ×2 (03:14→12:24)
[2022-01-24] MEDS: Docusate Sodium 100 MG Cap PO PRN (07:49)
== END 2022-01-24 11:26 | disposition home or self-care (01) | DRG 560 ==
LOC: JD.OBCHECK 14:55 → JD.OB 14:58 → JD.OBCHECK 16:20 → OBSVTOIN 01-23 00:38 → JD.OB 01-23 00:39
PROVIDERS: ADMIT Obstetrics & Gynecology; ATTEND Obstetrics & Gynecology
PROC: 10E0XZZ Delivery of Products of Conception, External Approach (ICD-10-PCS; principal; 2022-01-23)
PROC: 10907ZC Drainage of Amniotic Fluid, Therapeutic from Products of Conception, Via Natural or Artificial Opening (ICD-10-PCS; 2022-01-23)
PROC: 3E033VJ Introduction of Other Hormone into Peripheral Vein, Percutaneous Approach (ICD-10-PCS; 2022-01-23)
PROC: 3E0R3BZ Introduction of Anesthetic Agent into Spinal Canal, Percutaneous Approach (ICD-10-PCS; 2022-01-23)
DX: O13.4 Gestational [pregnancy-induced] hypertension without significant proteinuria, complicating childbirth (principal); Z3A.39 39 weeks gestation of pregnancy; Z37.0 Single live birth; O69.1XX0 Labor and delivery complicated by cord around neck, with compression, not applicable or unspecified
CPT/HCPCS: 36415; 51702; 59025; 59409; 80048; 82565; 82570; 83615; 84156; 84450; 84460; 84520; 84550; 85025; 86592; 86850; 86900; 86901; 93005; A9270-GY; J2590; J3010; J3490; J7120

== ENCOUNTER 2025-02-27 16:50 | Emergency (ER) | payer BC, OTHER ==
[2025-02-27] MEDS ORDERED: Sodium Chloride 0.9% 10 ML Syringe FLUSH PRN (17:00)
[2025-02-27 17:22] LABS: BASOPHILS ABSOLUTE AUTO 0.1 K/mm3 (0.0-0.2); BASOPHILS PERCENT AUTO 0.8 % (0.0-1.0); EOSINOPHILS ABSOLUTE AUTO 0.2 K/mm3 (0.0-0.4); EOSINOPHILS PERCENT AUTO 2.7 % (0.0-6.0); IMMATURE GRAN ABSOLUTE AUTO 0.03 K/mm3 (0.00-0.05); IMMATURE GRAN PERCENT AUTO 0.3 % (0.0-0.4); LYMPHOCYTES ABSOLUTE AUTO 2.7 K/mm3 (1.0-4.8); LYMPHOCYTES PERCENT AUTO 29.8 % (24.0-44.0); MEAN PLATELET VOLUME 10.6 fl (9.4-12.3); MONOCYTES ABSOLUTE AUTO 0.7 K/mm3 (0.0-0.8); MONOCYTES PERCENT AUTO 8.1 % (0.0-8.0); NEUTROPHILS ABSOLUTE AUTO 5.3 K/mm3 (1.8-7.7); NEUTROPHILS PERCENT AUTO 58.3 % (41.0-71.0); NRBC ABSOLUTE 0.00 (0.00-0.02); NRBC PERCENT 0.0 % (0.0-0.2); PLATELET COUNT,PLT 319 K/mm3 (150-400); RED BLOOD CELL COUNT 4.58 M/mm3 (4.10-5.30); WHITE BLOOD CELL COUNT,WBC 9.02 K/mm3 (3.9-11.3)
[2025-02-27 17:53] LABS: A/G RATIO 1.0 (1-2); ALANINE AMINOTRANSFERASE,ALT 35.0 U/L (14-59); ASPARTATE AMNIOTRANSFERASE,AST 23.0 U/L (15-37); BILIRUBIN TOTAL 0.7 mg/dL (0.2-1.0); BLOOD UREA NITROGEN,BUN 15.0 mg/dL (7-18); CARBON DIOXIDE,CO2 27.0 mEq/L (21-32); CHLORIDE,CL 107.0 mEq/L (98-107); CREATININE 1.0 mg/dL (0.55-1.02); EST CRCL DRUG DOSING (CG) 81.28 mL/min; ESTIMATED GFR 75.0 mL/min (>60); GLUCOSE RANDOM 94.0 mg/dL (70-99); POTASSIUM,K 3.9 mEq/L (3.5-5.1); PROTEIN TOTAL,TP 7.7 g/dl (6.4-8.2); SODIUM,NA 142.0 mEq/L (136-145)
[2025-02-27] MEDS: Ketorolac 30 MG/ML SDV IVPUSH ONE (18:38)
== END 2025-02-27 19:21 | disposition home or self-care (01) ==
LOC: JD.ED 16:50
DX: R07.89 Other chest pain (principal); I10 Essential (primary) hypertension; E66.9 Obesity, unspecified; Z91.018 Allergy to other foods; Z88.0 Allergy status to penicillin; Z88.1 Allergy status to other antibiotic agents; Z68.35 Body mass index [BMI] 35.0-35.9, adult
CPT/HCPCS: 36415; 71045; 80053; 83880; 84484; 84703; 85025; 93005; 96374; 99285; A9270; J1885; 93010; 99284